=== PATIENT | male | born 1955 | race Hispanic/Latino ===

== ENCOUNTER 2021-11-25 10:01 | Emergency (ER) | payer MEDICARE, SELFPAY ==
[2021-11-25] VITALS (7 sets, daily range): BP systolic 134–158; BP diastolic 75–94; PULSE 66–73; RESP 16–24; TEMP 36.4–37.2; O2SAT 95–98; BMI 34.0
[2021-11-25 11:03] LABS: Absolute Lymphocyte Count 2.81 X10^3/uL (0.83-4.51); Absolute Neutrophil Count 6.7 X10^3/uL (2.0-7.7); Basophil% 0.8 % (0-1); Eosinophil# 1.45 X10^3/uL; Eosinophils% 11.4 % (0-5); Hematocrit 45.2 % (40-54); Hemoglobin 16.6 g/dL (13.0-16.5); Lymphocyte # 2.81 X10^3/ul (0.83-4.51); Lymphocyte % 22.1 % (19-41); Mean Corp Hgb Conc 36.7 g/dL (32-36); Mean Corpuscular Hgb 33.5 pg (27.0-32.0); Mean Corpuscular Volume 91.3 fL (80-94); Mean Platelet Vol. 10.4 fl (6.2-12.0); Monocyte# 1.45 X10^3/uL; Monocyte% 11.4 % (0-10); NRBC Flagged by Analyzer 0 % (0-5); Neutrophil # 6.66 X10^3/uL (2.7-7.7); Neutrophil % 52.3 % (47-70); Platelet Count 223 K/mm3 (150-450); RBC Distribution Width CV 13.3 % (11.6-14.6); RBC Distribution Width SD 43.9 fl (35.1-43.9); Red Blood Count 4.95 M/mm3 (4.6-6.2); White Blood Count 12.7 K/mm3 (4.4-11.0)
--- NOTE | 2021-11-25 11:06 | ED.VIS.DYS ---
HPI History of Present Illness Chief Complaint: Shortness of Breath Narrative Narrative: 66-year-old male presenting with cough and congestion x3 weeks. He states he usually gets all his care at [facility] but states he has been at the hospital over there since 1 AM this morning and was unable to be seen. His daughter brought him here to be seen. Apparently he has never had a fever or body aches. He states his chest hurts from coughing so much but he has not had chest pressure. He does state that he is short of breath and when he lays back he coughs much more vigorously. He does have dyspnea on exertion. He states he has a history of a mild exercise-induced asthma but does not have COPD. He does have a transplant registered nurse because he states distantly had a spot on his lung. He was seen in follow-up this last week for a yearly checkup and when he was seen he was sick then. He was placed on Augmentin, prednisone, cetirizine. He states he is still coughing and short of breath. He states he does have a history of rheumatoid arthritis and diabetes. [facility] Medical History Diabetes Rheumatoid arthritis Home Medications levofloxacin 750 mg tablet 750 mg PO DAILY 7 days #7 tabs 11/25/21 [Rx Last Taken Unknown] Allergy/AdvReac Type Severity Reaction Status Date / Time aspirin Allergy Rash Verified 11/25/21 10:02 Surgical History History of left hip replacement History of tonsillectomy Social History Smoking Status: Former smoker ROS ROS ED Constitutional Constitutional ED: Denies chills, fever(s) or weight loss Eyes Eyes: Denies blurry vision or change in vision ENT ENT ED: Reports rhinorrhea Cardiovascular Cardiovascular: Reports chest pain Respiratory/Chest Respiratory/Chest: Reports cough, dyspnea and dyspnea on exertion Gastrointestinal Gastrointestinal: Denies abdominal pain or constipation Genitourinary Genitourinary ED: Denies dysuria or hematuria Musculoskeletal Musculoskeletal: Denies arthralgias or back pain Integumentary Denies abscess or Abrasions Neurologic Neurologic: Denies headache(s) or paresthesias Psychiatric Psychiatric: Denies anxiety or depression EXAM Physical Exam Const Vital Signs: 11/25/21 10:04 11/25/21 10:10 11/25/21 10:10 Temperature 97.6 F L 97.6 F L Temperature Source Temporal Temporal Pulse Rate 70 71 71 Respiratory Rate 19 H 24 H 24 H Respiratory Effort Respiratory Depth Respiratory Pattern Blood Pressure 158/94 H 145/75 H Blood Pressure Mean 115 98 Pulse Ox 97 97 97 Oxygen Delivery Method Room Air Room Air Room Air 11/25/21 10:10 11/25/21 11:05 11/25/21 11:05 Temperature Temperature Source Pulse Rate Respiratory Rate Respiratory Effort Short of Breath Respiratory Depth Normal Respiratory Pattern Tachypnea Blood Pressure Blood Pressure Mean Pulse Ox 96 Oxygen Delivery Method Room Air Room Air Room Air 11/25/21 11:12 11/25/21 11:17 11/25/21 11:17 Temperature 97.8 F Temperature Source Temporal Pulse Rate 72 66 Respiratory Rate 16 18 Respiratory Effort Respiratory Depth Respiratory Pattern Blood Pressure 152/94 H Blood Pressure Mean 113 Pulse Ox 97 98 Oxygen Delivery Method Room Air Room Air 11/25/21 12:00 Temperature 98.9 F Temperature Source Temporal Pulse Rate 73 Respiratory Rate 16 Respiratory Effort Respiratory Depth Respiratory Pattern Blood Pressure 134/78 H Blood Pressure Mean 96 Pulse Ox 96 Oxygen Delivery Method Room Air Positive well nourished General Appearance ED: NAD; Negative for pallor HEENT Reports moist mucous membranes atraumatic Eyes PERRL and EOMs intact bilaterally Resp normal respiratory effort Auscultation: wheezes expiratory wheezes Cardio regular rate and regular rhythm GI non-tender Neuro oriented x3 and CN's II-XII intact bilaterally Sensorium / Orientation: alert Psych mental status grossly normal Skin no wounds General Skin Exam: Negative for jaundice or pallor MDM MDM MDM Narrative Medical decision making narrative: 66-year-old male with cough and wheezing on examination. He states this has been going on for several days now. He is already seen his transplant registered nurse and was put on Augmentin Monday. He is on prednisone 40 mg p.o. daily. He initially went to [facility] but was not seen today because the ER was backed up. He does state that his chest has been tight with his coughing I did obtain an EKG which shows a sinus rhythm at a ventricular rate of 65 bpm without sign of ischemic change or dysrhythmia on my interpretation. Chest x-ray on my interpretation shows left lower lobe infiltrate. CBC shows a slight leukocytosis of 12.7 which could be consistent with infiltrate but he is also on prednisone. His hemoglobin is concentrated at 16.6. Renal function and electrolytes are normal. High-sensitivity troponin is 12. BNP is normal at 19.2. After long discussion with the patient he prefers to be switched to a different antibiotic I will start him on Levaquin with the first dose in the ER. He is to continue his prednisone as well. He will do his albuterol treatments at home every 4 hours as needed. Return precautions discussed. Impression: 1. Left lower lobe pneumonia 2. Leukocytosis Lab Data Attestation: I reviewed the patient's lab results. Labs: Laboratory Results - last 24 hr 11/25/21 11/25/21 11/25/21 10:29 10:29 10:29 WBC 12.7 H RBC 4.95 Hgb 16.6 H Hct 45.2 MCV 91.3 MCH 33.5 H MCHC 36.7 H RDW Std Deviation 43.9 RDW Coeff of Cole 13.3 Plt Count 223 MPV 10.4 Immature Gran % (Auto) 2.000 H Neut % (Auto) 52.3 Lymph % (Auto) 22.1 [place] % (Auto) 11.4 H Eos % (Auto) 11.4 H Baso % (Auto) 0.8 Absolute Neuts (auto) 6.7 Absolute Lymphs (auto) 2.81 Nucleated RBC % 0 Sodium 140 Potassium 3.4 L Chloride 105 Carbon Dioxide 27.0 Anion Gap 8 BUN 16 Creatinine 0.88 Estim Creat Clear Calc 77.20 Est GFR (MDRD) Af Amer 111 Est GFR (MDRD) Non-Af 92 BUN/Creatinine Ratio 18.2 Glucose 108 H Calcium 8.9 Troponin I High Sens 12 B-Natriuretic Peptide 11/25/21 10:29 WBC RBC Hgb Hct MCV MCH MCHC RDW Std Deviation RDW Coeff of Cole Plt Count MPV Immature Gran % (Auto) Neut % (Auto) Lymph % (Auto) [place] % (Auto) Eos % (Auto) Baso % (Auto) Absolute Neuts (auto) Absolute Lymphs (auto) Nucleated RBC % Sodium Potassium Chloride Carbon Dioxide Anion Gap BUN Creatinine Estim Creat Clear Calc Est GFR (MDRD) Af Amer Est GFR (MDRD) Non-Af BUN/Creatinine Ratio Glucose Calcium Troponin I High Sens B-Natriuretic Peptide 19.2 Radiography Diagnostic Testing: Clinical Impression(s) from Imaging Studies Chest X-Ray 11/25/21 12:13 IMPRESSION: Increased markings in the left lung base as described. Early infiltrate should be ruled out. Electronically Signed: Landen Simpson MD at 12:27 EDT , Discharge Plan Triage Chief Complaint: Shortness of Breath ED Provider: Micah Lira Dx/Rx/DC Orders Instructions: ED Bronchitis with Wheezing (Adult), ED Pneumonia (Adult) Prescriptions: New levofloxacin 750 mg tablet 750 mg PO DAILY 7 Days Qty: 7 0RF Primary Care Provider: Luciano Horner Referrals: Luciano Horner [Other] Disposition Disposition: Home, Self Care
[2021-11-25 11:07] LABS: Anion Gap 8 (5-15); BUN 16 mg/dL (7-18); BUN/Creat Ratio 18.2 RATIO (10-20); Calcium,Total 8.9 mg/dL (8.5-10.1); Chloride 105 mmol/L (98-107); Creatinine, Serum 0.88 mg/dL (0.70-1.30); EST Glomerular Filtration Rate 92 mL/min (>60); Est Glom Filt Rate - Afr Amer 111 mL/min (>60); Glucose 108 mg/dL (74-106); Potassium 3.4 mmol/L (3.5-5.1); Sodium Level 140 mmol/L (136-145)
[2021-11-25] MEDS: Ipratropium/Albuterol Sulfate 3 ML AMPUL.NEB INHALATION (11:16)
[2021-11-25] MEDS: Albuterol 2.5 MG/3 ML VIAL.NEB. INHALATION (11:16)
[2021-11-25] MEDS: MethylPREDNISolone 125 MG/2 ML Vial IV (11:19)
[2021-11-25 11:43] LABS: Troponin-I HS 12 pg/mL (3.0-78.0)
[2021-11-25 11:44] LABS: BNP,B-Type NATRIURETIC PEPTIDE 19.2 pg/mL (0-100)
--- NOTE | 2021-11-25 12:13 | RAD_ITS ---
STUDY: X-RAY CHEST REASON FOR EXAM: Male, 66 years old. Shortness of breath, cough and chest congestion. TECHNIQUE: Single AP portable view of the chest. COMPARISON: None. FINDINGS: EKG electrodes are seen. There is elevation of the left hemidiaphragm. Increased markings at the left lung base. Early infiltrate should be ruled out. There is no demonstrated pleural abnormality. Normal size heart. Normal mediastinum and jada. Normal visualized pulmonary arteries. There is atherosclerotic tortuosity of the aortic arch and descending thoracic aorta. There are diffuse degenerative changes of the visualized thoracic spine. Normal visualized ribs, clavicles, and shoulders. Possible hiatal hernia. RAD/Chest 1 View (Portable) IMPRESSION: Increased markings in the left lung base as described. Early infiltrate should be ruled out. Electronically Signed: Landen Simpson MD at 12:27 EDT ,
[2021-11-25] MEDS: levoFLOXacin 750 MG Tablet PO (14:06)
== END 2021-11-25 14:13 | disposition home or self-care (01) ==
PROVIDERS: Emergency Provider Student in an Organized Health Care Education/Training Program; Visit Provider Student in an Organized Health Care Education/Training Program
DX: J18.9 Pneumonia, unspecified organism (principal); M06.00 Rheumatoid arthritis without rheumatoid factor, unspecified site; E11.9 Type 2 diabetes mellitus without complications; Z87.891 Personal history of nicotine dependence; D72.829 Elevated white blood cell count, unspecified; Z79.52 Long term (current) use of systemic steroids; R06.2 Wheezing
CPT/HCPCS: 71045; 80048; 83880; 84484; 85025; 87811; 93005; 94640; 99285; A4216